=== PATIENT | male | born 2000 | race Caucasian/White ===

== ENCOUNTER 2024-07-04 16:01 | Emergency (ER) | payer BC ==
[~2024-07-04] VITALS: Ht 172.7 cm; Wt 74.8 kg
[2024-07-04] MEDS ORDERED: NEOMY/BACITRA/POLYMYXIN B OINT UD PACKET TP ONE (16:59)
[2024-07-04] MEDS ORDERED: methylPREDNISolone ACETATE 40 MG VIAL ONE (17:09)
[2024-07-04 17:16] VITALS: BP 119/59; O2SAT 98
[2024-07-04] MEDS: NEOMY/BACITRA/POLYMYXIN B OINT UD PACKET TP ONE (17:18)
== END 2024-07-04 17:16 | disposition home or self-care (01) ==
LOC: ER 16:03
DX: S61.210A Laceration without foreign body of right index finger without damage to nail, initial encounter (principal); W45.8XXA Other foreign body or object entering through skin, initial encounter; Y93.89 Activity, other specified; Y92.89 Other specified places as the place of occurrence of the external cause; Y99.8 Other external cause status
CPT/HCPCS: A4606; A4663; J1010